=== PATIENT | male | born 1940 | race Caucasian/White ===

== ENCOUNTER 2020-01-28 19:29 | Inpatient (IN) | payer MEDICARE ==
[~2020-01-28] VITALS: Ht 175.3 cm; Wt 94.0 kg
--- NOTE | 2020-01-28 19:51 | PHYS DOC ---
General Adult EDM: Chief Complaint: ALTERED MENTAL STATUS HPI: HPI: 79-year-old male presents via EMS with possible fall and altered mental status. Patient was found on the ground at his home. Family was checking on him and they found his blood sugar to be high on their monitor. They gave him 20 units of some kind of insulin 45 minutes prior to arrival. EMS and monitor both read high. Patient complains of some penile pain. He has a Payne catheter that has not been changed since December. He denies that he fell. He states that he slid out of bed. He does not know why or how he slid out of bed. He is alert to himself and answers questions, but does not always answer. He does not complain of any other pain. He does not believe he is had a fever. He is not able to tell us if he has been taking his medications. Review of Systems: Review of Systems: Constitutional: Denies fever or chills Respiratory: Denies cough or shortness of breath Cardiovascular: Denies chest pain or edema GI: Denies abdominal pain, nausea, vomiting, bloody stools or diarrhea : Penile pain Musculoskeletal: Denies back pain or joint pain Neurologic: Denies headache The rest of the review of system is limited due to mental status Heart Score: Risk Factors: Risk Factors: DM, Current or recent (<one month) smoker, HTN, HLP, family history of CAD, obesity. Risk Scores: Score 0 - 3: 2.5% MACE over next 6 weeks - Discharge Home Score 4 - 6: 20.3% MACE over next 6 weeks - Admit for Clinical Observation Score 7 - 10: 72.7% MACE over next 6 weeks - Early Invasive Strategies Current Medications: Current Meds: Current Medications Medications (Trade) Dose Ordered Sig/[facility] Start Time Stop Time Status Last Admin Dose Admin Sodium Chloride 1,000 ml @ 1,000 mls/hr 1X ONCE 01/28/20 20:00 01/28/20 20:59 Allergies: Allergies: Allergies Coded Allergies Type Severity Reaction Last Updated Verified Penicillins Allergy Unknown 01/28/20 Yes Physical Exam: PE: Constitutional: Well developed, well nourished, no acute distress. [] HENT: Normocephalic, atraumatic, bilateral external ears normal, oropharynx dry, no oral exudates, nose normal. [] Eyes: PERRLA, EOMI, conjunctiva normal, no discharge. [] Neck: , no tenderness, supple, no stridor. [] Cardiovascular: Heart rate regular rhythm, no murmur [] Lungs & Thorax: Bilateral breath sounds clear to auscultation [] Abdomen: Bowel sounds normal, soft, no tenderness, no masses, no pulsatile masses. [] Skin: Warm, dry, no erythema, no rash. [] Back: No tenderness[] Extremities: No tenderness [] Neurologic: Alert to self [] : Payne catheter in place. Head of penis retracted in the skin, moist and whitish in color when protracted. No active bleeding. [] Current Patient Data: Vital Signs: Vital Signs Date Time Temp Pulse Resp B/P (MAP) Pulse Ox O2 Delivery O2 Flow Rate FiO2 01/28/20 19:38 98.4 104 16 101/37 (58) 95 Nasal Cannula 2.0 EKG: EKG: [] Radiology/Procedures: Radiology/Procedures: [] Course & Med Decision Making: Course & Med Decision Making Pertinent Labs and Imaging studies reviewed. (See chart for details) The patient's blood sugars 1293. We have started an insulin drip. His lactic acid is 9.5. His creatinine is 3.7. Anion gap is 35. Potassium 6.7 I have ordered 30 mL/kg of fluids for the patient. He will likely get several liters in the end. We will replace his Payne catheter. I have ordered blood cultures. We will give him levofloxacin because he is allergic to penicillins. I spoke with Dr. Denney and he would prefer the patient be transferred to [facility]. He will accept the admission. The patient is likely source of infection in his urine. It is pending at this time. The patient does have evidence of urinary tract infection. [facility] had no ICU beds available. I spoke with Dr. Denney a second time and he has agreed to ICU admission at this facility. Prior to admission, the patient was more alert and responsive. 49 minutes of critical care time was spent on this patient exclusive of other billable procedures. [] Dragon Disclaimer: Dragon Disclaimer: This electronic medical record was generated, in whole or in part, using a voice recognition dictation system. Departure Departure: Impression: Primary Impression: Sepsis Qualified Codes: A41.9 - Sepsis, unspecified organism; R65.20 - Severe sepsis without septic shock; N17.9 - Acute kidney failure, unspecified Additional Impressions: UTI (urinary tract infection) Qualified Codes: T83.511A - Infection and inflammatory reaction due to indwelling urethral catheter, initial encounter; N39.0 - Urinary tract infection, site not specified Lactic acidosis DKA (diabetic ketoacidoses) Qualified Codes: E11.10 - Type 2 diabetes mellitus with ketoacidosis without coma Hyperkalemia Acute kidney failure Qualified Codes: N17.9 - Acute kidney failure, unspecified Disposition: 09 ADMITTED INPATIENT Admitting Physician: Heriberto Denney Condition: GUARDED Justification of Admission: Justification of Admission: Justification of Admission Dx: Yes DKA: DKA MAYTE ALEJANDRO DO Jan 28, 2020 19:51
[2020-01-28] MEDS ORDERED: IV NORMAL SALINE 1,000ML 1,000 ML IV ONE (20:00)
--- NOTE | 2020-01-28 20:21 | EKG ---
[address] [address] Test Date: 2020-01-28 Test Time: 20:02:47 Pat Name: ROXANE ELDER Department: Room: Gender: M Reconciler: DUDLEY : 1940 Requested By: MAYTE ALEJANDRO Order Number: [id number] Reading MD: Measurements Intervals [place] Rate: 99 P: 90 ME: 128 QRS: 51 QRSD: 100 T: 79 QT: 362 QTc: 470 Interpretive Statements SINUS RHYTHM LOW LIMB LEAD VOLTAGE ST & T ABNORMALITY, CONSIDER ANTEROLATERAL ISCHEMIA OR LEFT VENTRICULAR STRAIN ABNORMAL ECG RI6.02 No previous ECG available for comparison
[2020-01-28 20:34] LABS: ALBUMIN 3.4 g/dL (3.4-5.0); ALBUMIN/GLOBULIN RATIO 0.8 (1.0-1.7); CREATININE 3.7 mg/dL (0.7-1.3); GFR 15.9; TOTAL BILIRUBIN 0.5 mg/dL (0.2-1.0); TOTAL PROTEIN 7.8 g/dL (6.4-8.2)
[2020-01-28 20:41] LABS: BASO # 0.1 x10^3/uL (0.0-0.2); BASO % 0 % (0-3); EOS % 0 % (0-3); LYMPH # 0.5 x10^3/uL (1.0-4.8); LYMPH % 2 % (24-48); MEAN CORPUSCULAR HEMOGLOBIN 30 pg (25-35); MEAN CORPUSCULAR HGB CONC 29 g/dL (31-37); MEAN CORPUSCULAR VOLUME 106 fL (79-100); MONO % 5 % (0-9); NEUT # 20.2 x10^3uL (1.8-7.7); NEUT % 93 % (31-73); PLATELET COUNT 358 x10^3/uL (140-400); RED BLOOD COUNT 3.97 x10^6/uL (4.30-5.70); RED CELL DISTRIBUTION WIDTH 16.4 % (11.5-14.5); WHITE BLOOD COUNT 21.7 x10^3/uL (4.0-11.0)
[2020-01-28] MEDS ORDERED: DEXTROSE 50% 25 GM / 50ML DISP.SYRIN. IV PRN (20:45)
[2020-01-28 20:48] LABS: POTASSIUM 6.7 mmol/L (3.5-5.1)
[2020-01-28] MEDS ORDERED: IV NORMAL SALINE 100ML 100 ML ONE (21:03)
[2020-01-28 21:16] LABS: CLARITY,URINE TURBID; COLOR,URINE YELLOW
[2020-01-28 21:17] LABS: BACTERIA,URINE MANY /HPF (0-FEW); BILIRUBIN,URINE NEG (NEG); GLUCOSE,URINE >=1000 mg/dL (NEG); NITRITE,URINE NEG (NEG); SQUAMOUS EPITHELIAL CELL,UR OCC /LPF; UROBILINOGEN,URINE 0.2 mg/dL (0.2 mg/dL); WBC,URINE >40 /HPF (0-4)
[2020-01-28 21:18] LABS: YEAST,URINE PRESENT /HPF
[2020-01-28] MEDS: INSULIN REGULAR VIAL 100 UNIT in IV NORMAL SALINE 100ML 100 ML IV PRN (21:18)
[2020-01-28 21:30] LABS: % BANDS 2 % (0-9); % LYMPHS 5 % (24-48); % MONOS 5 % (0-10); % SEGS 88 % (35-66)
[2020-01-28 21:32] LABS: OVALOCYTES PRESENT; PLT ESTIMATE ADEQUATE (ADEQUATE)
[2020-01-28 21:33] LABS: TOXIC VACUOLATION PRESENT
[2020-01-28] MEDS: IV NORMAL SALINE 1,000ML 1,000 ML IV SCH ×2 (21:33→21:55)
--- NOTE | 2020-01-28 21:57 | RAD ---
EXAM: AP View of the chest DATE: 01/28/2020 7:37 PM INDICATION: Altered mental status COMPARISON: No Prior FINDINGS/ IMPRESSION: The heart is not enlarged.Aorta is tortuous without scarring calcifications. There is a background of diffuse interstitial prominence and likely emphysematous change. Associated patchy opacities are seen in the lung bases which may represent atelectasis or developing consolidation. No pleural effusion or pneumothorax. Multiple old left rib fractures are seen. Electronically signed by: Jhonatan Lyle MD (01/28/2020 9:54 PM) SUE
--- NOTE | 2020-01-28 21:57 | RAD ---
Exam: CT head INDICATION: Fall TECHNIQUE: Sequential axial images through the head were obtained without the administration of IV contrast. Comparisons: None FINDINGS: No focal parenchymal lesion or hemorrhage is identified. There is no midline shift or sulcal effacement. Patchy evidence in the periventricular white matter. No acute vascular territory infarction is identified. Key-white distinction is preserved. The ventricular system is within normal limits without compression hydrocephalus. The basal cisterns are well maintained. The visualized portions of the paranasal sinuses and mastoid air cells are well-pneumatized. No acute fractures. IMPRESSION: Small vessel ischemic change, technically age indeterminate without prior imaging. Exposure: One or more of the following in the visualized dose reduction techniques were utilized for this examination: 1. Automated exposure control 2. Adjustment of the MA and/or KV according to patient size Use of iterative of reconstructive technique Electronically signed by: Brigido Kumar MD (01/28/2020 9:54 PM) [id number]
[2020-01-28 21:59] LABS: BGAS PH 7.21 (7.35-7.46)
[2020-01-28] MEDS ORDERED: SODIUM BICARB ADULT 8.4% 50 MEQ/50 ML DISP.SYRIN. IV ONE (22:00)
[2020-01-28] MEDS ORDERED: ONDANSETRON PF 4 MG/2 ML VIAL. IVP PRN (23:15)
[2020-01-28] MEDS ORDERED: ACETAMINOPHEN 325 MG TABLET PO PRN (23:15)
[2020-01-29] VITALS (19 sets, daily range): BP systolic 89–139; BP diastolic 32–76
[2020-01-29] MEDS: IV NORMAL SALINE 1,000ML 1,000 ML IV SCH (01:10)
[2020-01-29 01:37] LABS: CALCIUM 8.3 mg/dL (8.5-10.1); CREATININE 3.3 mg/dL (0.7-1.3); GFR 18.2; POTASSIUM 4.2 mmol/L (3.5-5.1)
[2020-01-29] MEDS ORDERED: IV NORMAL SALINE 1,000ML 1,000 ML IV PRN (01:45)
[2020-01-29] MEDS ORDERED: IV DEXTROSE 5 %-0.45 % NACL 1,000 ML IV PRN (01:45)
[2020-01-29] MEDS ORDERED: POTASSIUM CHLORIDE 10MEQ 100 ML IV PRN ×3 (01:45)
[2020-01-29] MEDS ORDERED: ACET325T21 PO (03:04)
[2020-01-29] MEDS ORDERED: INSU100V41 SQ (03:04)
[2020-01-29] MEDS ORDERED: POLY2500 PO (03:04)
[2020-01-29] MEDS ORDERED: LOSA25TA11 PO (03:04)
[2020-01-29] MEDS ORDERED: LACT1CAP29 PO (03:04)
[2020-01-29] MEDS ORDERED: LIDO700A21 TP (03:04)
[2020-01-29] MEDS ORDERED: ROPI2TAB10 PO (03:04)
[2020-01-29] MEDS ORDERED: CLOP75TA PO (03:04)
[2020-01-29] MEDS ORDERED: INSU100V13 SQ (03:04)
[2020-01-29] MEDS ORDERED: CYAN100031 PO (03:04)
[2020-01-29] MEDS ORDERED: CALC-56 PO (03:04)
[2020-01-29] MEDS ORDERED: METO-239 PO (03:04)
[2020-01-29] MEDS ORDERED: TORS20TA2 PO (03:04)
[2020-01-29] MEDS ORDERED: CETI5TAB2 PO (03:04)
[2020-01-29] MEDS ORDERED: TAMS0.4C97 PO (03:04)
[2020-01-29] MEDS ORDERED: GABA-586 PO (03:04)
[2020-01-29] MEDS ORDERED: SENN8.6T11 PO (03:04)
[2020-01-29] MEDS ORDERED: POTA20TA4 PO (03:04)
--- NOTE | 2020-01-29 03:57 | NUR ---
The patient, ROXANE ELDER, 79 y/o, M admitted by ANTONINO CARRINGTON MD, was given written information regarding hospital policies, unit procedures and contact persons. Health history and home medications were reviewed with patient. Patient is a poor historian, home medications verified through [facility] medical records. Bed locked and in lowest position, call light within reach. Valuables were checked and left with patient.
[2020-01-29 07:21] LABS: ALBUMIN 2.3 g/dL (3.4-5.0); ALBUMIN/GLOBULIN RATIO 0.7 (1.0-1.7); CALCIUM 7.1 mg/dL (8.5-10.1); CREATININE 2.5 mg/dL (0.7-1.3); TOTAL BILIRUBIN 0.2 mg/dL (0.2-1.0); TOTAL PROTEIN 5.8 g/dL (6.4-8.2)
[2020-01-29] MEDS ORDERED: POTASSIUM CL 20MEQ D5-0.45NACL 1,000 ML IV SCH (07:45)
[2020-01-29] MEDS: POTASSIUM CHLORIDE 10MEQ 100 ML IV PRN ×3 (08:44→10:52)
[2020-01-29] MEDS: IV DEXTROSE 5 %-0.45 % NACL 1,000 ML IV SCH ×2 (08:45→18:45)
[2020-01-29 10:42] LABS: BASO % 0 % (0-3); EOS # 0.1 x10^3/uL (0.0-0.7); EOS % 1 % (0-3); HEMATOCRIT 31.2 % (39.0-53.0); HEMOGLOBIN 10.3 g/dL (13.0-17.5); LYMPH # 1.2 x10^3/uL (1.0-4.8); LYMPH % 9 % (24-48); MEAN CORPUSCULAR HEMOGLOBIN 30 pg (25-35); MEAN CORPUSCULAR HGB CONC 33 g/dL (31-37); MONO # 1.1 x10^3/uL (0.0-1.1); MONO % 8 % (0-9); NEUT # 11.6 x10^3uL (1.8-7.7); NEUT % 83 % (31-73); PLATELET COUNT 242 x10^3/uL (140-400); RED BLOOD COUNT 3.48 x10^6/uL (4.30-5.70); RED CELL DISTRIBUTION WIDTH 15.3 % (11.5-14.5)
[2020-01-29 10:45] LABS: CALCIUM 8.1 mg/dL (8.5-10.1); CREATININE 2.7 mg/dL (0.7-1.3); GFR 22.9; POTASSIUM 4.5 mmol/L (3.5-5.1)
[2020-01-29 11:03] LABS: MEAN CORPUSCULAR VOLUME 90 fL (79-100)
[2020-01-29] MEDS: IPRATRPIUM/ALBUTEROL 0.5/2.5MG 3 ML NEBU. NEB SCH ×4 (11:46→20:51)
--- NOTE | 2020-01-29 12:29 | NUR ---
NURSING NOTE PT COUGHING AND WHEEZING, HAVING DIFF CLEARING THROAT. DR CARRINGTON CALLED, ORDER FOR BREATHING TREATMENTS AND MUCINEX OBTAINED. REPEAT CHEST XRAY ORDERED. PT ALSO COMPLAINED OF NAUSEA BUT REFUSES ZOFRAN STATES "I WANT TO PUKE IF I CAN, IT MAKES ME FEEL BETTER". WILL CONTINUE TO MONITOR. HUBERT THOMAS.
[2020-01-29 13:04] LABS: CALCIUM 8.1 mg/dL (8.5-10.1); CREATININE 2.8 mg/dL (0.7-1.3); POTASSIUM 3.9 mmol/L (3.5-5.1)
--- NOTE | 2020-01-29 13:12 | RAD ---
INDICATION: Reason: soa, coughing / Spl. Instructions: / History: COMPARISON: One day prior FINDINGS: Single view of chest obtained. Cardiac silhouette is prominent in size with calcific atherosclerosis. Perihilar opacities are seen bilaterally. Disorganized pulmonary markings with interstitial prominence. IMPRESSION: * Repeat demonstration of perihilar opacities in the bilateral lungs which could be from edema or infiltrate. * Enlargement of the cardiomediastinal silhouette. Electronically signed by: Mo Eckert MD (01/29/2020 1:09 PM) [id number]
[2020-01-29] MEDS ORDERED: MORPHINE SULFATE 2 MG/ML DISP.SYRIN. IV PRN (13:15)
[2020-01-29] MEDS ORDERED: rOPINIRole 1 MG TABLET. PO SCH ×2 (13:15→21:00)
[2020-01-29] MEDS ORDERED: FUROSEMIDE 40 MG/4 ML VIAL IVP ONE (13:30)
[2020-01-29 13:46] LABS: BGAS PH 7.39 (7.35-7.46)
--- NOTE | 2020-01-29 14:23 | NUR ---
NURSING NOTE CONSULT CARDIOLOGY CONSULT CALLED TO МАРИНА. HUBERT THOMAS.
[2020-01-29] MEDS ORDERED: POLYETHYLENE GLYCOL 3350 17 GM PACKET. PO PRN (15:30)
[2020-01-29] MEDS ORDERED: SENNOSIDES 8.6 MG TABLET PO PRN (15:30)
[2020-01-29] MEDS ORDERED: ACETAMINOPHEN 325 MG TABLET PO PRN (15:30)
--- NOTE | 2020-01-29 15:41 | HP ---
ADMIT DATE: 01/28/2020 HISTORY OF PRESENT ILLNESS: The patient is a 79-year-old male patient who presented to the Emergency Room with altered mental status. He was found on the floor at his home. Family was checking on him and they found his blood sugar to be high on their monitor. They gave him 20 units of some kind of insulin 45 minutes prior to arrival, EMS and monitor both read high. The patient's complains of some penile pain. He has a Payne catheter, it has not been changed since December. He denied that he fell. He states that he slid out of bed. He does not know why or how he slid out of the bed. He is alert to himself and answers question, but does not always answer. He does not complain of any chest pain. He does not believe he had any fever. He is not able to tell us if he is taking his medication. He was extensively investigated in the Emergency Room, was found to have extremely marked leukocytosis, white cell count 21,000. His blood sugar was 1293. His potassium was high at 6.7 and he has chronic kidney disease versus [id number] kidney disease and dilutional hyponatremia. His lactic acid was 9.5. He did receive a total of 2500 mL of fluid, started on insulin drip. He was given also Levaquin. His chest x-ray showed the heart is not enlarged. Aorta is tortuous without scarring ____ calcification is the background, diffuse interstitial prominence and likely emphysematous changes associated patchy opacities are seen in the lung. These may represent atelectasis or developing consolidation. No pleural effusion or pneumothorax. He was admitted to ICU to continue with IV fluid, insulin drip and IV antibiotic. PAST MEDICAL HISTORY: Significant for cerebrovascular accident on 05/06/2016. He has diabetic peripheral neuropathy, benign essential hypertension, hyperlipidemia, chronic obstructive pulmonary disease, restless leg syndrome, obesity, and depression. He has also generalized osteoarthritis, chronic systolic congestive heart failure. He has multiple rib fractures, recurrent falls, mild nonproliferative diabetic retinopathy, peripheral venous insufficiency, chronic kidney disease, pseudophakia, diabetic macular edema, type 2 diabetes mellitus, lung abscess with pneumonia. He is dependent on supplemental oxygen. SOCIAL HISTORY: He apparently is , does not smoke, drink alcohol or use any recreational drugs. ALLERGIES: HE IS ALLERGIC TO PENICILLIN. MEDICATIONS: He is currently on acetaminophen 650 mg every 8 hours as needed, cyanocobalamin 1000 mcg once a day, furosemide 40 mg daily, gabapentin 200 mg 3 times a day. He is on Levemir insulin 17 units subcutaneously twice a day, lactobacillus 1 tablet every morning, nitroglycerin 0.4 mg sublingually as needed, polyethylene glycol 17 grams daily, potassium chloride 20 mEq once a day, senna 1 tablet twice a day. He is also on Plavix 75 mg once a day, Colace 100 mg once a day, guaifenesin 200 mg once a day. He is on ofloxacin 0.3% ophthalmic solution, ranitidine 150 mg once a day and tizanidine 2 mg 3 times a day. PHYSICAL EXAMINATION: GENERAL: On arrival to the Emergency Room, the patient looked pale, but no jaundice, cyanosis or thyromegaly. No jugular venous distention. No limb edema. VITAL SIGNS: His heart rate was 104, blood pressure was 101/37, temperature was 98.4, respiratory rate was 16, and oxygen saturation was 95% on 2 liters of oxygen. HEAD, EYES, EARS, NOSE AND THROAT: Showed normocephalic, atraumatic. NECK: Supple. HEART: Showed normal first and second heart sounds. No gallop or murmur. CHEST: Clear to auscultation. No crepitation or rhonchi. ABDOMEN: Distended, soft, nontender. No guarding or rigidity. No organomegaly. All hernial orifices intact. Bowel sounds normal. NEUROLOGIC: He is awake, alert, responding appropriately. All his cranial nerves are intact. EXTREMITIES: He moves extremities without difficulty. LABORATORY DATA: Her lab work on arrival showed a white cell count 21,000, hemoglobin 12, hematocrit 42, MCV 106 and platelet count 358,000 with a manual differential showed 93% polymorphs, 2% lymphocytes, 5% monocytes. His serum sodium was 126, potassium 6.7, chloride 83, bicarbonate 8, anion gap of 35, BUN 70, creatinine 3.7, estimated GFR was 15 mL per minute. His glucose was 1293. Lactic acid was 9.5, calcium was 9, total bilirubin was 0.5. AST and ALT were normal. Alkaline phosphatase was high. Total protein was 7.8, albumin 3.7. His blood gases showed a pH of 7.21, pCO2 of 26, pO2 of 75, bicarbonate 11, oxygen saturation was 92% on FiO2 of 21%. His urinalysis showed the urine was yellow, turbid with a pH of 5, specific gravity 1.015. Urine protein was 100. There was large amount of glucose, small amount of ketones, moderate amount of blood, negative for nitrites and leukocyte esterase. There are 11-20 rbc's and more than 40 wbc's. ASSESSMENT AND PLAN: The patient was admitted with diabetic ketoacidosis, urinary tract infection, lactic acidosis, hyperkalemia and acute kidney injury. He was treated with IV fluid, insulin drip as well as Levaquin. We will obviously monitor his lab work closely and adjust his medication as needed. Unfortunately, we do not have any lab work to compare with. [facility] get [facility]. ANTONINO CARRINGTON MD DR: KAYLA/yohan JOB#: [id number] / [id number]
[2020-01-29] MEDS: METOPROLOL SUCC 24HR ER 25 MG TAB.ER.24H. PO SCH (15:51)
[2020-01-29] MEDS: MEROPENEM 500 MG in IV NORMAL SALINE 50ML 50 ML IV SCH (16:57)
[2020-01-29 17:25] LABS: CALCIUM 8.3 mg/dL (8.5-10.1); CREATININE 2.5 mg/dL (0.7-1.3); POTASSIUM 3.7 mmol/L (3.5-5.1)
--- NOTE | 2020-01-29 18:08 | NUR ---
NURSING NOTE CARDIOLOGY SPOKE WITH DR REA ABOUT PT HEART RATE THAT GOES UP TO 140-150'S AND LASTS ABOUT [address] PER [address] REA, THAT IS OKAY AT THIS TIME, PT HAS INFECTION AND OTHER THINGS GOING ON. CONTINUE TO MONITOR. CALL BACK IF HEART RATE STAYS HIGH AND DOESNT COME BACK DOWN. NO ORDERS RECEIVED. WILL CONTINUE TO MONITOR. HUBERT THOMAS.
--- NOTE | 2020-01-29 18:29 | NUR ---
NURSING NOTE PT FELT WARM UPON REPOSITIONING, TEMP IS 99.0 AXILLARY. PRN TYLENOL GIVEN. WILL CONTINUE TO MONITOR. HUBERT THOMAS.
--- NOTE | 2020-01-29 20:24 | PN ---
DATE: 01/29/2020 SUBJECTIVE: The patient is resting, slightly propped up, clearly very restless and complaining of severe pain in his legs. He was constantly telling the nurse that he wants to and he denied; however, any chest pain or shortness of breath. PHYSICAL EXAMINATION: GENERAL: When I examined him this afternoon, he looked pale, but no jaundice or cyanosis. No lymphadenopathy, no thyromegaly. No jugular venous distention. No limb edema. VITAL SIGNS: His heart rate was 107, blood pressure was 139/43, temperature was 98.8, respiratory rate was 16, and oxygen saturation was 93% on 3 liters of oxygen. HEAD, EYES, EARS, NOSE AND THROAT: Showed normocephalic, atraumatic. NECK: Supple. HEART: Showed normal first and second heart sounds. No gallop or murmur. CHEST: Showed central trachea, equal bilateral chest expansion, air entry, vesicular breath sounds. I could not appreciate any crepitation or rhonchi. ABDOMEN: Slightly distended, soft, nontender. NEUROLOGIC: He was awake, alert, responding appropriately. All cranial nerves are intact. He moves extremities without difficulty. His intake over the last 24 hours was incompletely recorded, output was 725. LABORATORY DATA: As of this morning showed a white cell count is down to 14,000, hemoglobin 10, hematocrit 31, MCV 90 and platelet count 242,000 with normal manual differential. Serum sodium was 139, potassium 3.9, chloride 97, bicarbonate 23, anion gap of 14. His BUN was 64, creatinine was 2.8, estimated GFR was 22 mL per minute. His glucose was 377, calcium was 8.1. His beta natriuretic peptide was 3608. ASSESSMENT: 1. This is a 79-year-old male patient who was admitted with diabetic ketoacidosis. 2. Lactic acidosis. 3. Acute on chronic kidney injury. 4. Sepsis. 5. Urinary tract infection. 6. He has multiple other medical problems including probably chronic kidney disease, hypertension, hyperlipidemia, type 2 diabetes, chronic obstructive pulmonary disease, restless leg syndrome, and cerebrovascular accident. PLAN: To check his blood gases stat. We will give him 2 mg of morphine and 1 mg of Requip. We will contact his son to discuss the patient's request for hospice care. ANTONINO CARRINGTON MD DR: [place] JOB#: [id number] / [id number]
[2020-01-29] MEDS ORDERED: rOPINIRole 2 MG TABLET. PO SCH (21:00)
[2020-01-29] MEDS ORDERED: TAMSULOSIN 0.4 MG CAP.ER.24H. PO SCH (21:00)
[2020-01-29] MEDS: CALCIUM CARB/VIT D3 500/200 TABLET PO SCH (21:17)
[2020-01-29] MEDS: GABAPENTIN 300 MG CAPSULE. PO SCH (21:17)
[2020-01-29 22:30] LABS: CALCIUM 8.2 mg/dL (8.5-10.1); CREATININE 2.4 mg/dL (0.7-1.3); GFR 26.2; POTASSIUM 3.7 mmol/L (3.5-5.1)
[2020-01-30] VITALS (11 sets, daily range): BP systolic 91–123; BP diastolic 36–60
--- NOTE | 2020-01-30 01:39 | NUR ---
per time on lunchroom monitor. Pt had 16 beat run Vtach, upon assessment of pt, he was sleeping and no complaints/asymptomatic at this time. Pt remains on 2l o2 per [place].
[2020-01-30] MEDS: MEROPENEM 500 MG in IV NORMAL SALINE 50ML 50 ML IV SCH (04:39)
[2020-01-30] MEDS: INSULIN REGULAR VIAL 100 UNIT in IV NORMAL SALINE 100ML 100 ML IV PRN (04:40)
[2020-01-30] MEDS: IV DEXTROSE 5 %-0.45 % NACL 1,000 ML IV SCH (04:45)
[2020-01-30] MEDS: IPRATRPIUM/ALBUTEROL 0.5/2.5MG 3 ML NEBU. NEB SCH ×2 (04:59→09:41)
[2020-01-30] MEDS ORDERED: FUROSEMIDE 40 MG/4 ML VIAL IVP ONE (05:00)
--- NOTE | 2020-01-30 05:54 | NUR ---
Pt has slept well off and on tonight. Pt had to increase o2 from 2L to 3L per [place] and received a dose of lasix during my shift. Pt afebrile and VSS. Pt continues on insulin gtt and abx. Pt will have am labs drawn. Pt had no c/o pain throughout the night. Pt continued to have episodes of increased HR up to highest 180 but immediately came back down.
[2020-01-30 06:22] LABS: HEMATOCRIT 31.1 % (39.0-53.0); HEMOGLOBIN 10.3 g/dL (13.0-17.5); RED BLOOD COUNT 3.46 x10^6/uL (4.30-5.70); RED CELL DISTRIBUTION WIDTH 15.4 % (11.5-14.5)
[2020-01-30 06:36] LABS: ALBUMIN 2.7 g/dL (3.4-5.0); ALBUMIN/GLOBULIN RATIO 0.7 (1.0-1.7); CALCIUM 8.7 mg/dL (8.5-10.1); CREATININE 2.1 mg/dL (0.7-1.3); GFR 30.6; TOTAL BILIRUBIN 0.3 mg/dL (0.2-1.0); TOTAL PROTEIN 6.6 g/dL (6.4-8.2)
[2020-01-30] MEDS: CALCIUM CARB/VIT D3 500/200 TABLET PO SCH (08:06)
[2020-01-30] MEDS: GABAPENTIN 300 MG CAPSULE. PO SCH (08:07)
[2020-01-30] MEDS: METOPROLOL SUCC 24HR ER 25 MG TAB.ER.24H. PO SCH (08:07)
--- NOTE | 2020-01-30 08:35 | PDOC2 ---
LEROY SUMMERS PIPE INSULATOR 01/30/20 0835: CARDIAC CONSULT DATE OF CONSULT Date Of Consult DATE: 01/30/20 TIME: 08:33 REASON FOR CONSULT Reason for Consult AFIB CHF Tachycardia REFERRING PHYSICIAN Referring Physician Dr. Denney SOURCE Source: Chart review, Patient HPI History of Present Illness This is a 79 yo male who presented secondary to fall and altered mental status. Was found down at home on the floor. Patient thinks he slid out of bed to the floor. Family checked his blood sugar at home, which read as high on their monitor. Was noted with CHF and AFIB, which prompted this consult. Patient cannot recall falling. Reports he presented secondary to elevated blood sugar. Reports shortness of breath overnight. No chest pain, palpitations, dizziness, diaphoresis. Is slightly nauseated follow medication administration this am. Denies any h/o AFIB, CHF, HTN, or HLP although these are well documented in the [place] medical record. [facility] Thinks he has seen database reporting consultant there prior, although does not routinely follow with them. PAST MEDICAL HISTORY Cardiovascular: AFIB, CHF, HTN, hyperipidemia Pulmonary: COPD (chronic O2) CENTRAL NERVOUS SYSTEM: CVA Psych: Depression Musculoskeletal: Osteoarthritis, Other (H/o falls ) Renal/: Chronic renal insuff, Other (neurogenic bladder with chronic Payne ) Endocrine: Diabetes PAST SURGICAL HISTORY Past Surgical History: No pertinent history FAMILY HISTORY Family History: Hypertension SOCIAL HISTORY Smoke: Quit (10 years ago ) ALCOHOL: none Drugs: None Lives: with Family CURRENT MEDICATIONS Current Medications Current Medications Sodium Chloride 1,000 ml @ 1,000 mls/hr 1X ONCE IV Last administered on 01/28/20at 19:52; Start 01/28/20 at 20:00; Stop 01/28/20 at 20:59; Status DC Insulin Human Regular 100 unit/ Sodium Chloride 101 ml @ 0 mls/hr CONT PRN IV SEE I/O RECORD Last administered on 01/30/20at 04:40; Start 01/28/20 at 21:00 Dextrose (Dextrose 50%-Water Syringe) 12.5 gm PRN Q15MIN PRN IV LOW BLOOD SUGAR; Start 01/28/20 at 20:45 Sodium Chloride 1,000 ml @ 2,580 mls/hr Q24M IV Last administered on 01/29/20at 01:10; Start 01/28/20 at 20:45; Stop 01/28/20 at 21:45; Status DC Levofloxacin/ Dextrose 150 ml @ 100 mls/hr 1X ONCE IV Last administered on 01/28/20at 21:12; Start 01/28/20 at 21:00; Stop 01/28/20 at 22:29; Status DC Sodium Chloride 100 ml @ As Directed STK-MED ONCE .ROUTE ; Start 01/28/20 at 21:03; Stop 01/28/20 at 21:04; Status DC Sodium Bicarbonate (Sodium Bicarb Adult 8.4% Syr) 50 meq 1X ONCE IV Last administered on 01/28/20at 21:27; Start 01/28/20 at 22:00; Stop 01/28/20 at 22:01; Status DC Ondansetron HCl (Zofran) 4 mg PRN Q4HRS PRN IVP NAUSEA/VOMITING; Start 01/28/20 at 23:15; Stop 01/29/20 at 23:14; Status DC Acetaminophen (Tylenol) 650 mg PRN Q4HRS PRN PO FEVER > 100.3'F; Start 01/28/20 at 23:15; Stop 01/29/20 at 15:41; Status DC Sodium Chloride 1,000 ml @ 150 mls/hr Q6H40M PRN IV SEE I/O RECORD Last administered on 01/29/20at 06:41; Start 01/29/20 at 01:45 Dextrose/Sodium Chloride 1,000 ml @ 150 mls/hr Q6H40M PRN IV SEE I/O RECORD; Start 01/29/20 at 01:45 Potassium Chloride 100 ml @ 100 mls/hr PRN Q1HR PRN IV SEE COMMENTS Last administered on 01/29/20at 10:52; Start 01/29/20 at 01:45 Potassium Chloride 100 ml @ 100 mls/hr PRN Q1HR PRN IV SEE COMMENTS; Start 01/29/20 at 01:45 Potassium Chloride 100 ml @ 100 mls/hr PRN Q1HR PRN IV SEE COMMENTS; Start 01/29/20 at 01:45 Potassium Chloride 100 ml @ 100 mls/hr PRN Q1HR PRN IV SEE COMMENTS; Start 01/29/20 at 01:45 Potassium Chloride/Dextrose/ Sod Cl 1,000 ml @ 175 mls/hr Q5H43M IV Last administered on 01/29/20 07:45; Start 01/29/20 at 07:45; Stop 01/29/20 at 08:44; Status DC Dextrose/Sodium Chloride 1,000 ml @ 100 mls/hr Q10H IV Last administered on 01/29/20 08:45; Start 01/29/20 at 08:45 Guaifenesin (Mucinex Er) 600 mg BID PO Last administered on 01/30/20 08:07; Start 01/29/20 at 21:00 Albuterol/ Ipratropium (Duoneb) 3 ml RTQID NEB Last administered on 01/30/20 04:59; Start 01/29/20 at 11:45 Morphine Sulfate (Morphine 2mg Syringe) 2 mg PRN Q2HR PRN IV PAIN Last administered on 01/29/20 13:22; Start 01/29/20 at 13:15 Ropinirole HCl (Requip) 1 mg QHS PO Last administered on 01/29/20 13:23; Start 01/29/20 at 21:00 Ropinirole HCl (Requip) 1 mg 1X PO ; Start 01/29/20 at 13:15 Furosemide (Lasix) 40 mg 1X ONCE IVP Last administered on 01/29/20 13:22; Start 01/29/20 at 13:30; Stop 01/29/20 at 13:31; Status DC Acetaminophen (Tylenol) 650 mg TID PRN PRN PO pain or fever Last administered on 01/29/20 18:26; Start 01/29/20 at 15:30 Calcium/Vitamin D (Oscal D 500mg/ 200uts) 1 tab BID PO Last administered on 01/30/20at 08:06; Start 01/29/20 at 21:00 Clopidogrel Bisulfate (Plavix) 75 mg DAILY PO Last administered on 01/30/20 08:07; Start 01/30/20 at 09:00 Gabapentin (Neurontin) 300 mg BID PO Last administered on 01/30/20 08:07; Start 01/29/20 at 21:00 Lidocaine (Lidoderm) 1 patch DAILY TP ; Start 01/30/20 at 09:00 Metoprolol Succinate (Toprol Xl) 12.5 mg DAILY PO Last administered on 7/21/20at 08:07; Start 01/29/20 at 15:45 Potassium Chloride (Klor-Con) 20 meq DAILY PO Last administered on 01/30/20 08:07; Start 01/30/20 at 09:00 Ropinirole HCl (Requip) 2 mg QHS PO Last administered on 01/29/20 21:17; Start 01/29/20 at 21:00 Sennosides (Senna) 17.2 mg PRN DAILY PRN PO CONSTIPATION Last administered on 01/30/20at 08:06; Start 01/29/20 at 15:30 Tamsulosin HCl (Flomax) 0.4 mg QHS PO Last administered on 01/29/20 21:17; Start 01/29/20 at 21:00 Cetirizine HCl (ZyrTEC) 5 mg DAILY PO Last administered on 01/30/20at 08:07; Start 01/30/20 at 09:00 Cyanocobalamin (Vitamin B-12) 1,000 mcg DAILY PO Last administered on 01/30/20at 08:07; Start 01/30/20 at 09:00 Polyethylene Glycol (miraLAX) 17 gm PRN BID PRN PO CONSTIPATION; Start 01/29/20 at 15:30 Meropenem 500 mg/ Sodium Chloride 50 ml @ 100 mls/hr Q12H IV Last administered on 01/30/20at 04:39; Start 01/29/20 at 17:00 Furosemide (Lasix) 40 mg 1X ONCE IVP Last administered on 01/30/20at 04:39; Start 01/30/20 at 05:00; Stop 01/30/20 at 05:01; Status DC Active Scripts Active Reported Lidocaine PATCH (Lidocaine) 1 Each Adh..patch 1 Each TP DAILY REMOVE AFTER 12 HOURS Calcium 500 + Vit D 200 Caplet (Calcium Carbonate/Vitamin D3) 1 Each Tablet 1 Tab PO BID Gabapentin (Gabapentin) 300 Mg Capsule 300 Mg PO BID Senna Laxative (Sennosides) 8.6 Mg Tablet 2 Tab PO PRN DAILY PRN Potassium Chloride (Potassium Chloride) 20 Meq Tablet.er 20 Meq PO DAILY Polyethylene Glycol 3350 2,500 Gm Powder 17 Gm PO PRN BID PRN Probiotic (Lactobacillus Combo No.10) 1 Each Capsule 1 Tab PO DAILY Acetaminophen 325 Mg Tablet 2 Tab PO TID PRN PRN Levemir (Insulin Detemir) 100 Unit/1 Ml Vial 15 Unit SQ QHS Losartan Potassium (Losartan Potassium) 25 Mg Tablet 12.5 Mg PO DAILY Cetirizine Hcl 5 Mg Tablet 5 Mg PO DAILY Metoprolol Succinate ( Xl ) (Metoprolol Succinate) 25 Mg Tab.er.24h 0.5 Tab PO DAILY Torsemide 20 Mg Tablet 1 Tab PO DAILY Ropinirole Hcl 2 Mg Tablet 2 Mg PO QHS Insulin Aspart 100 Unit/1 Ml Vial 12 Unit SQ TIDAC B-12 (Cyanocobalamin (Vitamin B-12)) 1,000 Mcg Tablet.er 1 Tab PO DAILY Flomax (Tamsulosin Hcl) 0.4 Mg Cap.er.24h 1 Cap PO QHS Clopidogrel (Clopidogrel Bisulfate) 75 Mg Tablet 1 Tab PO DAILY ALLERGIES Allergies: Coded Allergies: Penicillins (Verified Allergy, Unknown, 01/28/20) ROS Review of Systems 141 point ROS conducted with pertinent positives noted above in HPI PHYSICAL EXAM General: Alert, Cooperative, No acute distress HEENT: Atraumatic, Mucous membr. moist/pink Lungs: Other (crackles bilaterally ) Heart: Other (IRRR; tele AFIB with RVR) Abdomen: Soft Extremities: No edema, Normal pulses Skin: No breakdown Neuro: Normal speech, Sensation intact Psych/Mental Status: Mood NL, Other (forgetful ) MUSCULOSKELETAL: Osteoarthritic changes both hands VITALS Vital Signs Vital Signs Date Time Temp Pulse Resp B/P (MAP) Pulse Ox O2 Delivery O2 Flow Rate FiO2 01/30/20 08:07 98 108/41 01/30/20 07:14 18 96 Nasal Cannula 3.0 01/30/20 04:00 98.5 LABS LABS Laboratory Tests Test 01/28/20 19:57 01/28/20 20:19 01/28/20 21:40 01/28/20 22:31 White Blood Count 21.7 x10^3/uL (4.0-11.0) Red Blood Count 3.97 x10^6/uL (4.30-5.70) Hemoglobin 12.0 g/dL (13.0-17.5) Hematocrit 42.0 % (39.0-53.0) Mean Corpuscular Volume 106 fL (79-100) Mean Corpuscular Hemoglobin 30 pg (25-35) Mean Corpuscular Hemoglobin Concent 29 g/dL (31-37) Red Cell Distribution Width 16.4 % (11.5-14.5) Platelet Count 358 x10^3/uL (140-400) Neutrophils (%) (Auto) 93 % (31-73) Lymphocytes (%) (Auto) 2 % (24-48) Monocytes (%) (Auto) 5 % (0-9) Eosinophils (%) (Auto) 0 % (0-3) Basophils (%) (Auto) 0 % (0-3) Neutrophils # (Auto) 20.2 x10^3uL (1.8-7.7) Lymphocytes # (Auto) 0.5 x10^3/uL (1.0-4.8) Monocytes # (Auto) 1.0 x10^3/uL (0.0-1.1) Eosinophils # (Auto) 0.0 x10^3/uL (0.0-0.7) Basophils # (Auto) 0.1 x10^3/uL (0.0-0.2) Segmented Neutrophils % 88 % (35-66) Band Neutrophils % 2 % (0-9) Lymphocytes % 5 % (24-48) Monocytes % 5 % (0-10) Toxic Vacuolation Present Platelet Estimate Adequate (ADEQUATE) Macrocytosis Slight Ovalocytes Present Sodium Level 126 mmol/L (136-145) Potassium Level 6.7 mmol/L (3.5-5.1) Chloride Level 83 mmol/L (98-107) Carbon Dioxide Level 8 mmol/L (21-32) Anion Gap 35 (6-14) Blood Urea Nitrogen 70 mg/dL (8-26) Creatinine 3.7 mg/dL (0.7-1.3) Estimated GFR (Cockcroft-Gault) 15.9 BUN/Creatinine Ratio 19 (6-20) Glucose Level 1293 mg/dL (70-99) 922 mg/dL (70-99) Lactic Acid Level 9.5 mmol/L (0.4-2.0) Calcium Level 9.0 mg/dL (8.5-10.1) Total Bilirubin 0.5 mg/dL (0.2-1.0) Aspartate Amino Transf (AST/SGOT) 16 U/L (15-37) Alanine Aminotransferase (ALT/SGPT) 16 U/L (16-63) Alkaline Phosphatase 189 U/L (46-116) Total Protein 7.8 g/dL (6.4-8.2) Albumin 3.4 g/dL (3.4-5.0) Albumin/Globulin Ratio 0.8 (1.0-1.7) Urine Collection Type Unknown Urine Color Yellow Urine Clarity Turbid Urine pH 5.0 Urine Specific [place] 1.015 Urine Protein 100 mg/dl (NEG-TRACE) Urine Glucose (UA) >=1000 mg/dL (NEG) Urine Ketones (Stick) 15 mg/dL (NEG) Urine Blood Mod (NEG) Urine Nitrite Neg (NEG) Urine Bilirubin Neg (NEG) Urine Urobilinogen Dipstick 0.2 mg/dL (0.2 mg/dL) Urine Leukocyte Esterase Small (NEG) Urine RBC 11-20 /HPF (0-2) Urine WBC >40 /HPF (0-4) Urine Squamous Epithelial Cells Occ /LPF Urine Bacteria Many /HPF (0-FEW) Urine Mucus Slight /LPF Urine Yeast Present /HPF Blood Gas pH 7.21 (7.35-7.46) Blood Gas PCO2 26 mmHg (35-46) Blood Gas PO2 75 mmHg (71-100) Blood Gas HCO3 11 mmol/L (21-28) Arterial Bld O2 Saturation (Calc) 92 % (92-99) FiO2 21 % Test 01/29/20 00:10 01/29/20 01:05 01/29/20 06:24 01/29/20 10:00 Lactic Acid Level 6.0 mmol/L (0.4-2.0) Sodium Level 133 mmol/L (136-145) 142 mmol/L (136-145) 137 mmol/L (136-145) Potassium Level 4.2 mmol/L (3.5-5.1) 3.0 mmol/L (3.5-5.1) 4.5 mmol/L (3.5-5.1) Chloride Level 95 mmol/L (98-107) 106 mmol/L (98-107) 100 mmol/L (98-107) Carbon Dioxide Level 23 mmol/L (21-32) 26 mmol/L (21-32) 23 mmol/L (21-32) Anion Gap 15 (6-14) 10 (6-14) 14 (6-14) Blood Urea Nitrogen 66 mg/dL (8-26) 58 mg/dL (8-26) 62 mg/dL (8-26) Creatinine 3.3 mg/dL (0.7-1.3) 2.5 mg/dL (0.7-1.3) 2.7 mg/dL (0.7-1.3) Estimated GFR (Cockcroft-Gault) 18.2 25.0 22.9 Glucose Level 724 mg/dL (70-99) 188 mg/dL (70-99) 313 mg/dL (70-99) Calcium Level 8.3 mg/dL (8.5-10.1) 7.1 mg/dL (8.5-10.1) 8.1 mg/dL (8.5-10.1) BUN/Creatinine Ratio 23 (6-20) Total Bilirubin 0.2 mg/dL (0.2-1.0) Aspartate Amino Transf (AST/SGOT) 13 U/L (15-37) Alanine Aminotransferase (ALT/SGPT) 12 U/L (16-63) Alkaline Phosphatase 117 U/L (46-116) Total Protein 5.8 g/dL (6.4-8.2) Albumin 2.3 g/dL (3.4-5.0) Albumin/Globulin Ratio 0.7 (1.0-1.7) White Blood Count 14.0 x10^3/uL (4.0-11.0) Red Blood Count 3.48 x10^6/uL (4.30-5.70) Hemoglobin 10.3 g/dL (13.0-17.5) Hematocrit 31.2 % (39.0-53.0) Mean Corpuscular Volume 90 fL (79-100) Mean Corpuscular Hemoglobin 30 pg (25-35) Mean Corpuscular Hemoglobin Concent 33 g/dL (31-37) Red Cell Distribution Width 15.3 % (11.5-14.5) Platelet Count 242 x10^3/uL (140-400) Neutrophils (%) (Auto) 83 % (31-73) Lymphocytes (%) (Auto) 9 % (24-48) Monocytes (%) (Auto) 8 % (0-9) Eosinophils (%) (Auto) 1 % (0-3) Basophils (%) (Auto) 0 % (0-3) Neutrophils # (Auto) 11.6 x10^3uL (1.8-7.7) Lymphocytes # (Auto) 1.2 x10^3/uL (1.0-4.8) Monocytes # (Auto) 1.1 x10^3/uL (0.0-1.1) Eosinophils # (Auto) 0.1 x10^3/uL (0.0-0.7) Basophils # (Auto) 0.0 x10^3/uL (0.0-0.2) Test 01/29/20 12:38 01/29/20 13:25 01/29/20 17:04 01/29/20 22:10 Sodium Level 134 mmol/L (136-145) 137 mmol/L (136-145) 136 mmol/L (136-145) Potassium Level 3.9 mmol/L (3.5-5.1) 3.7 mmol/L (3.5-5.1) 3.7 mmol/L (3.5-5.1) Chloride Level 97 mmol/L (98-107) 101 mmol/L (98-107) 100 mmol/L (98-107) Carbon Dioxide Level 23 mmol/L (21-32) 24 mmol/L (21-32) 25 mmol/L (21-32) Anion Gap 14 (6-14) 12 (6-14) 11 (6-14) Blood Urea Nitrogen 64 mg/dL (8-26) 62 mg/dL (8-26) 60 mg/dL (8-26) Creatinine 2.8 mg/dL (0.7-1.3) 2.5 mg/dL (0.7-1.3) 2.4 mg/dL (0.7-1.3) Estimated GFR (Cockcroft-Gault) 22.0 25.0 26.2 Glucose Level 377 mg/dL (70-99) 122 mg/dL (70-99) 127 mg/dL (70-99) Calcium Level 8.1 mg/dL (8.5-10.1) 8.3 mg/dL (8.5-10.1) 8.2 mg/dL (8.5-10.1) Troponin I Quantitative 0.022 ng/mL (0-0.055) ZR-Uyi-F-Type Natriuretic Peptide 3608 pg/mL (0-449) Blood Gas pH 7.39 (7.35-7.46) Blood Gas PCO2 32 mmHg (35-46) Blood Gas PO2 81 mmHg (71-100) Blood Gas HCO3 19 mmol/L (21-28) Arterial Bld O2 Saturation (Calc) 96 % (92-99) FiO2 32 % Test 01/30/20 06:10 White Blood Count 8.0 x10^3/uL (4.0-11.0) Red Blood Count 3.46 x10^6/uL (4.30-5.70) Hemoglobin 10.3 g/dL (13.0-17.5) Hematocrit 31.1 % (39.0-53.0) Mean Corpuscular Volume 90 fL (79-100) Mean Corpuscular Hemoglobin 30 pg (25-35) Mean Corpuscular Hemoglobin Concent 33 g/dL (31-37) Red Cell Distribution Width 15.4 % (11.5-14.5) Platelet Count 193 x10^3/uL (140-400) Sodium Level 138 mmol/L (136-145) Potassium Level 4.0 mmol/L (3.5-5.1) Chloride Level 100 mmol/L (98-107) Carbon Dioxide Level 27 mmol/L (21-32) Anion Gap 11 (6-14) Blood Urea Nitrogen 56 mg/dL (8-26) Creatinine 2.1 mg/dL (0.7-1.3) Estimated GFR (Cockcroft-Gault) 30.6 BUN/Creatinine Ratio 27 (6-20) Glucose Level 147 mg/dL (70-99) Calcium Level 8.7 mg/dL (8.5-10.1) Total Bilirubin 0.3 mg/dL (0.2-1.0) Aspartate Amino Transf (AST/SGOT) 19 U/L (15-37) Alanine Aminotransferase (ALT/SGPT) 15 U/L (16-63) Alkaline Phosphatase 121 U/L (46-116) Total Protein 6.6 g/dL (6.4-8.2) Albumin 2.7 g/dL (3.4-5.0) Albumin/Globulin Ratio 0.7 (1.0-1.7) ASSESSMENT/PLAN Assessment/Plan 1. Fall, encephalopathy. [facility] head negative for acute findings 2. Diabetes, II with significant hyperglycemia, DKA. POA 3. PAFIB with RVR; presently RVR 4. Acute respiratory failure with acute on chronic diastolic CHF, AE COPD. Chronic home O2 5. Acute on chronic diastolic CHF; s/p IV Lasix 6 . Leukocytosis, lactic acidosis; improved 7. H/o CVA; on Plavix 8. Hypertension; low end 9. Hyperlipidemia 10. NICOLE on CKD, hpyerkalemia. improving 11. Neurogenic bladder with chronic Payne Recommendations IV Dig x1 now as blood pressure is marginal. Can repeat if HR remains uncontrolled Echo to assess LV systolic function TSH, Lipids Poor candidate for long-term OAC given h/o debility, recurrent falls Avoid nephrotoxins. Monitor renal function with diuresis Supportive care Further pending above. TOÑO HALL MD 01/30/20 1731: CARDIAC CONSULT ASSESSMENT/PLAN Assessment/Plan Patient seen and examined Discussed with our nurse practitioner and agree with her assessment and plan. Encephalopathy. CT head scan shows no acute changes. Atrial fibrillation. Rate elevated. Treating with digoxin and IV Cardizem if blood pressure is sufficient. Will check a echocardiogram. Acute respiratory failure. Exacerbation of COPD. On home oxygen. Will consider transfer to [place]. NICOLE. Improving. Acute systolic heart failure. Mild diuresis with monitoring of lab. Echocardiogram as above. History of CVA. Borderline blood pressure. LEROY SUMMERS APRN Jan 30, 2020 08:35 TOÑO HALL MD Jan 30, 2020 17:31
[2020-01-30] MEDS ORDERED: DIGOXIN IV 500 MCG/2 ML AMPUL. ONE (08:38)
[2020-01-30] MEDS ORDERED: DIGOXIN IV 500 MCG/2 ML AMPUL. IV ONE ×2 (08:45→09:15)
[2020-01-30] MEDS ORDERED: CYANOCOBALAMIN (VITAMIN B-12) 1,000 MCG TABLET. PO SCH (09:00)
[2020-01-30] MEDS ORDERED: CETIRIZINE HCL 10 MG TABLET PO SCH (09:00)
[2020-01-30] MEDS ORDERED: POTASSIUM CHLORIDE 20 MEQ TABLET.ER. PO SCH (09:00)
[2020-01-30] MEDS ORDERED: LIDOCAINE (700MG/PATCH) PATCH. TP SCH (09:00)
[2020-01-30] MEDS ORDERED: CLOPIDOGREL BISULFATE 75 MG TABLET PO SCH (09:00)
[2020-01-30] MEDS ORDERED: ENOXAPARIN ** NOTE DOSE ** SYRINGE SQ ONE (09:00)
--- NOTE | 2020-01-30 09:28 | NUR ---
NURSING NOTE AFIB/TACHYCARDIA PT HEART RATE WAS 170'S-180'S. LEROY WILL HERE AT BEDSIDE, ORDER OBTAINED FOR DIGOXIN 250 IV PUSH OVER 5 MIN GIVEN AT 0845. REPEAT DOSE GIVEN AT 0910 OF DIGOXIN 250 IV. EKG OBTAINED. ORDERS FOR ECHO, LIPID PANEL, THYROID PANEL OBTAINED. WILL CONTINUE TO MONITOR. HUBERT THOMAS.
[2020-01-30] MEDS ORDERED: dilTIAZem VIAL 125 MG in IV NORMAL SALINE 100ML 100 ML IV PRN (10:00)
[2020-01-30] MEDS ORDERED: AMIODARONE 150 MG in IV DEXTROSE 5% 100 ML IV ONE (10:15)
[2020-01-30] MEDS ORDERED: METOPROLOL TARTRATE 5 MG/5 ML VIAL. IV ONE (10:15)
[2020-01-30] MEDS ORDERED: AMIODARONE 150 MG in IV DEXTROSE 5% 100 ML IVP ONE (11:00)
[2020-01-30] MEDS ORDERED: INSULIN LISPRO 300 UNITS/3 ML VIAL. SQ SCH ×2 (12:00)
--- NOTE | 2020-01-30 12:21 | NUR ---
NURSING NOTE REPORT CALLED TO YONATAN AT [facility]. PT GOING TO BED 102. HUBERT THOMAS.
--- NOTE | 2020-01-30 13:10 | CARD ---
MR#: [id number] Date of Study: 01/30/2020 Ordering Physician: LEROY SUMMERS, Referring Physician: LEROY SUMMERS, Tech: Michelle Cornelius BRIAN APPROVED REPORT EXAM: Two-dimensional and M-mode echocardiogram with Doppler and color Doppler. Other Information Quality : Good INDICATION Atrial Fibrillation Congestive Heart Failure 2D DIMENSIONS RVDd2.9 (2.9-3.5cm)Left Atrium(2D)3.2 (1.6-4.0cm) IVSd1.1 (0.7-1.1cm)Aortic Root(2D)3.5 (2.0-3.7cm) LVDd5.5 (3.9-5.9cm)LVOT Diameter2.4 (1.8-2.4cm) PWd1.1 (0.7-1.1cm)LVDs3.5 (2.5-4.0cm) FS (%) 20.0 %SV95.8 ml Aortic Valve AoV Peak Ean.130.1cm/sAoV VTI21.1cm AO Peak GR.6.8mmHgAO Mean GR.4mmHg FEROZ (VTI)3.73cm2 Mitral Valve MV E Sjplozws13.1cm/sMV DECEL [id number] MV A Uebqolog986.4cm/sE/A Ratio0.6 Tricuspid Valve TR P. Nrzydzhl545xs/sRAP [id number] TR Peak Gr.[id number] LEFT VENTRICLE The left ventricle is normal size. There is normal left ventricular wall thickness. Left ventricle sy stolic function is mildly impaired. The Ejection Fraction is 40-45%. There is mild hypokinesis in the inferior wall. Septal motion consistent with conduction abnormality. Transmitral Doppler flow patter n is Grade I-abnormal relaxation pattern. RIGHT VENTRICLE The right ventricle is normal size. The right ventricular systolic function is normal. ATRIA The left atrium size is normal. The right atrium size is normal. The interatrial septum is intact wit h no evidence for an atrial septal defect or patent foramen ovale as noted on 2-D or Doppler imaging. AORTIC VALVE The aortic valve is calcified but opens well. Doppler and Color Flow revealed no significant aortic r egurgitation. There is no significant aortic valvular stenosis. MITRAL VALVE The mitral valve is calcified but opens well. There is no evidence of mitral valve prolapse. There is no mitral valve stenosis. Doppler and Color Flow revealed trace mitral valve regurgitation. TRICUSPID VALVE The tricuspid valve is normal in structure and function. Doppler and Color Flow revealed trace tricus pid regurgitation. The PA pressure was estimated at 40 mmHg. There is no tricuspid valve stenosis. PULMONIC VALVE The pulmonic valve is not well visualized. Doppler and Color Flow revealed no pulmonic valvular regur gitation. There is no pulmonic valvular stenosis. GREAT VESSELS The aortic root is normal in size. The ascending aorta is not well seen. The IVC is normal in size an d collapses >50% with inspiration. PERICARDIAL EFFUSION There is no evidence of significant pericardial effusion. Critical Notification Critical Value: No <Conclusion> The left ventricle is normal size. Left ventricle systolic function is mildly impaired. The Ejection Fraction is 40-45%. There is mild hypokinesis in the inferior wall. Septal motion consistent with conduction abnormality. Doppler and Color Flow revealed no significant aortic regurgitation. There is no significant aortic valvular stenosis. Doppler and Color Flow revealed trace mitral valve regurgitation. Doppler and Color Flow revealed trace tricuspid regurgitation. The PA pressure was estimated at 40 mmHg. Signed by : Zheng Bryant MD Electronically Approved : 01/30/2020 13:10:09
--- NOTE | 2020-01-30 13:19 | NUR ---
NURSING NOTE DISCHARGE PT TRANSFERRED TO [facility] VIA EMS ACCOMPANIED BY EMS PERSONNEL. REPORT CALLED TO YONATAN. PT SON JOSE FRANCISCO INFORMED OF TRANSFER. WRITTEN AND VERBAL DISCHARGE INSTRUCTIONS GIVEN TO PT. BELONGINGS SENT WITH EMS INCLUDES BLACK PANTS, WHITE SHIRT, AND WALLET. HUBERT THOMAS.
--- NOTE | 2020-01-30 14:43 | EKG ---
[address] [address] Test Date: 2020-01-30 Test Time: 08:49:49 Pat Name: ROXANE ELDER Department: Room: ICU01 1 Gender: M Milk Inspector: : [id number] Requested By: ANTONINO CARRINGTON Order Number: [id number] Reading MD: Measurements Intervals [place] Rate: 157 P: [place]: QRS: 48 QRSD: 92 T: -141 QT: 290 QTc: 475 Interpretive Statements IRREGULAR RHYTHM, NO P-WAVE FOUND LOW LIMB LEAD VOLTAGE ST & T ABNORMALITY, CONSIDER ANTERIOR ISCHEMIA OR LEFT VENTRICULAR STRAIN INFEROLATERAL ISCHEMIA OR LEFT VENTRICULAR STRAIN ABNORMAL ECG RI6.01 No previous ECG available for comparison
[2020-01-30 15:51] LABS: THYROID STIM HORMONE (TSH) 1.279 uIU/mL (0.358-3.740)
--- NOTE | 2020-01-30 18:36 | DS ---
DATE OF DISCHARGE: 01/30/2020 HOSPITAL COURSE: The patient is a 79-year-old male patient who was admitted initially with sepsis secondary to urinary tract infection. He also had severe diabetic ketoacidosis, lactic acidosis with mxttu-rj-lqmeydy kidney injury. He was treated with IV fluid and insulin drip as well as IV Levaquin and apparently this morning, he went into atrial fibrillation with rapid ventricular response for which he was seen by the Cardiology team and in fact, he was treated with diltiazem drip and also digoxin, amiodarone and in consultation and at the recommendation of Dr. Sparks, the patient was transferred to [facility] for further evaluation and treatment. He was extremely short of breath this morning and has received 40 mg of IV Lasix. By the time he was transferred to [facility], he was slightly tachypneic. PHYSICAL EXAMINATION: VITAL SIGNS: His heart rate was 91, blood pressure 114/51, temperature was 97.9, respiratory rate 22, and oxygen saturation was 96% on 3 liters of oxygen. HEAD, EYES, EARS, NOSE AND THROAT: Showed normocephalic, atraumatic. NECK: Supple. HEART: Showed normal first and second heart sounds. No gallop or murmur. CHEST: Clear to auscultation. No crepitation or rhonchi. ABDOMEN: Distended, soft, nontender. NEUROLOGIC: He was awake, alert, responding appropriately. All cranial nerves are intact. He moves extremities without difficulty. His intake over the last 24 hours was 2250, output was 725. LABORATORY DATA: As of this morning, his white cell count came down to 8000, hemoglobin 10, hematocrit 31, MCV 90 and platelet count of 193,000. His chemistry showed that his serum sodium is now up to 138, potassium down to 4, chloride 100, bicarbonate 27, anion gap of 11, BUN 56, creatinine was 2.1, estimated GFR was 30 mL per minute, his glucose 147, calcium was 8.7. Total bilirubin, AST, ALT, alkaline phosphatase were normal. Total protein was 6.6, albumin 2.7. His serum triglycerides were 72, total cholesterol 133, LDL was 61, VLDL was 14, HDL cholesterol was 58 and the ratio was 2. His TSH was normal at 1.279. His most recent blood gases showed a pH of 7.39, pCO2 of 32, pO2 of 81, bicarbonate 19 and oxygen saturation 96%. His urinalysis showed that the urine was yellow, turbid with a pH of 5, specific gravity 1.015. There was large amount of protein, large amount of glucose, trace of ketones, negative for nitrite and moderate amount of blood, small amount of leukocyte esterase, 11-20 rbc's, and more than 40 wbc's, many bacteria. His urine culture showed multiple organisms consistent with colonization or contamination. DISCHARGE MEDICATIONS: He was basically transferred to [facility] to continue on Tylenol 650 mg 3 times a day, calcium carbonate with vitamin D one tablet twice a day, cetirizine 5 mg once a day, Plavix 75 mg once a day, cyanocobalamin 1000 mcg once a day, gabapentin 300 mg twice a day. He is on NovoLog insulin 12 units before meals and detemir insulin 15 units at bedtime, Lactobacillus 1 tablet p.o. daily, Lidoderm patch applied topically once a day, metoprolol succinate 12.5 mg daily, polyethylene glycol 17 grams daily, potassium chloride 20 mEq once a day, Requip 2 mg at bedtime, Senna-S 2 tablets once a day, tamsulosin 0.4 mg at bedtime, and torsemide 20 mg once a day. We held his losartan and potassium. FINAL DISCHARGE DIAGNOSES: 1. Diabetic ketoacidosis and lactic acidosis. 2. Type 2 diabetes mellitus. 3. Paroxysmal atrial fibrillation with rapid ventricular response. 4. Acute respiratory failure, multifactorial including astqt-ie-ukefixl diastolic congestive heart failure and acute chronic obstructive pulmonary disease exacerbation. 5. Zzmrz-ue-ngzzsnf diastolic congestive heart failure. 6. Hypertension. 7. Hyperlipidemia. 8. Pdlgs-pc-ujplwbn kidney injury. 9. Hyperkalemia, resolved. 10. Neurogenic bladder with chronic Payne catheter. 11. New onset atrial fibrillation. ANTONINO CARRINGTON MD DR: KAYLA/yohan JOB#: [id number] / [id number]
[2020-01-30] MEDS ORDERED: INSULIN GLARGINE SYRINGE. SQ SCH (21:00)
== END 2020-01-30 13:23 | disposition short-term general hospital (02) | DRG 871 ==
LOC: ER 19:29 → ICU 23:10
PROVIDERS: ADMIT Internal Medicine; ATTEND Internal Medicine
DX: A41.9 Sepsis, unspecified organism (principal); E11.10 Type 2 diabetes mellitus with ketoacidosis without coma; I50.43 Acute on chronic combined systolic (congestive) and diastolic (congestive) heart failure; J96.00 Acute respiratory failure, unspecified whether with hypoxia or hypercapnia; G93.40 Encephalopathy, unspecified; I13.0 Hypertensive heart and chronic kidney disease with heart failure and stage 1 through stage 4 chronic kidney disease, or unspecified chronic kidney disease; J44.1 Chronic obstructive pulmonary disease with (acute) exacerbation; N17.9 Acute kidney failure, unspecified; N39.0 Urinary tract infection, site not specified; R65.20 Severe sepsis without septic shock; E11.22 Type 2 diabetes mellitus with diabetic chronic kidney disease; E11.3219 Type 2 diabetes mellitus with mild nonproliferative diabetic retinopathy with macular edema, unspecified eye; E11.42 Type 2 diabetes mellitus with diabetic polyneuropathy; E78.5 Hyperlipidemia, unspecified; E87.5 Hyperkalemia; G25.81 Restless legs syndrome; I48.0 Paroxysmal atrial fibrillation; M15.9 Polyosteoarthritis, unspecified; N18.9 Chronic kidney disease, unspecified; N31.9 Neuromuscular dysfunction of bladder, unspecified; Z82.49 Family history of ischemic heart disease and other diseases of the circulatory system; Z86.73 Personal history of transient ischemic attack (TIA), and cerebral infarction without residual deficits; Z96.1 Presence of intraocular lens; Z99.81 Dependence on supplemental oxygen; Z91.81 History of falling; F32.9 Major depressive disorder, single episode, unspecified; W18.39XA Other fall on same level, initial encounter; Y93.89 Activity, other specified; Y92.89 Other specified places as the place of occurrence of the external cause; Y99.8 Other external cause status
CPT/HCPCS: 36415; 36600; 51702; 70450; 71045; 80048; 80053; 80061; 81001; 82803; 82947; 83605; 83880; 84443; 84484; 85007; 85025; 85027; 87086; 93005; 93306; 94640; 96361; 96365; 96375; J0282; J1160; J1650; J1815; J1940; J1956; J2185; J2270; J3480; J3490; 99291-25; J7030